=== PATIENT | female | born 1970 | race Caucasian/White ===

== ENCOUNTER 2019-12-07 15:17 | Outpatient (CLI) | payer BC, SELFPAY ==
--- NOTE | 2019-12-07 15:20 | MM_ITS ---
WS: [id number] SCREENING DIGITAL MAMMOGRAM WITH CAD HISTORY: SCREENING COMPARISON: 07/27/2015 Bilateral CC and MLO views submitted. Computer aided detection analyzed. Breast composition: There are scattered areas of fibroglandular density. No suspicious masses, microc alcifications or architectural distortion. MM/[place] [id number] IMPRESSION: BI-RADS: 1-Negative FOLLOW UP: 1 Year Follow-up
== END 2019-12-07 15:18 | disposition home or self-care (01) ==
LOC: RADSHAW 15:17
PROVIDERS: Family Provider Family Medicine; PCP Family Medicine; Visit Provider Family Medicine
DX: Z12.31 Encounter for screening mammogram for malignant neoplasm of breast (principal)
CPT/HCPCS: 77067

== ENCOUNTER 2020-03-14 09:16 | Outpatient (CLI) | payer BC, SELFPAY ==
[2020-03-14 10:36] LABS: Basophils # 0.1 10^3/uL (0.0-0.1); Basophils % 0.8 %; Eosinophils # 0.1 10^3/uL (0.0-0.8); Eosinophils % 1.5 %; Hematocrit 41.5 % (37.0-47.0); Hemoglobin 13.2 g/dL (11.5-15.3); Lymphocytes # 1.5 10^3/uL (0.8-4.8); Lymphocytes % 20.8 %; Mean Corpuscular HGB Conc 31.8 g/dL (30.0-36.0); Mean Corpuscular Hemoglobin 28.9 pg (28.0-34.0); Mean Corpuscular Volume 90.8 fL (81-99); Mean Platelet Volume 9.8 fL (7.4-10.4); Monocytes # 0.7 10^3/uL (0.2-0.9); Monocytes % 9.2 %; Neutrophils # 4.8 10^3/uL (1.8-7.7); Neutrophils % 67.4 %; Nucleated Red Blood Cells % 0 %; Platelet Count 345 10^3/cmm (130-400); Red Blood Count 4.57 10^6/uL (4.1-5.3); Red Cell Distribution Width 12.7 % (12.1-15.1); White Blood Count 7.2 10^3/uL (4.0-10.0)
== END 2020-03-14 09:17 | disposition home or self-care (01) ==
LOC: LAB 09:23
PROVIDERS: Family Provider Family Medicine; PCP Family Medicine; Visit Provider Specialist
DX: G35 Multiple sclerosis (principal); Z87.891 Personal history of nicotine dependence
CPT/HCPCS: 36415; 85025; 99213

== ENCOUNTER 2020-04-04 15:07 | Emergency (ER) | payer BC, SELFPAY ==
[2020-04-04 15:33] VITALS: BP 133/91; PULSE 84; RESP 14; TEMP 36.6; O2SAT 95; BMI 26.6
--- NOTE | 2020-04-04 16:13 | W.ED.GENADLT ---
HPI - General Adult General: Chief complaint: General Medical Stated complaint: rash Time Seen by Provider: 04/04/20 15:42 History of Present Illness: HPI narrative: Patient is a 49-year-old female presents today with pain, redness, swelling in her left arm. She says she has had some tenderness there since the beginning of March and around that time also had a blood draw in that arm. In the last few days it turned red and tender. She denies any fever constitutional symptoms. 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 The redness and swelling in her arm does not seem to involve the areas of eczema. Onset (ago): day(s) (Soreness for a few weeks but redness just for a day or 2.) Location: upper extremity Severity: moderate Quality: dull Pain Consistency: constant Review of Systems Const: Denies: fever(s) or chills Skin/Breast: Reports: erythema, skin tenderness, skin swelling and other (Significant eczema on both hands and her feet) PFSH ED PFSH: Family History Other Cancer Social History Smoking and tobacco status: former smoker Quit status (tobacco): has quit using tobacco Year quit tobacco: 2013 Physical Exam Const: COMMON NORMALS: no acute distress, patient oriented x3, no limitations and alert GENERAL APPEARANCE: cooperative and comfortable HENMT: HEAD & SCALP: normal to inspection FACE & SINUS: normal facial exam Eye: GENERAL EYE: appearance normal, both eyes and all related structures Neck/C-Spine: COMMON NORMALS: supple and no meningeal signs Chest: COMMONS NORMALS: normal inspection of the chest Resp: COMMON NORMALS: normal respiratory effort and No use of accessory muscles Cardio: PERIPHERAL PULSES: radial pulses present GI: COMMON NORMALS: Normal to inspection, nondistended, normoactive bowel sounds present, Soft to palpation and non-tender INSPECTION: Yes normal to inspection AUSCULTATION: Yes normoactive bowel sounds PALPATION: Yes Soft to palpation Back/Pelvis: COMMON NORMALS: thoracic and lumbar spine normal to inspection Extremity: COMMON NORMALS: normal to inspection Neuro: COMMON NORMALS: patient oriented x3, moves all extremities, no focal motor deficits and no sensory deficits noted SENSORIUM/ORIENTATION: Yes alert MENINGEAL SIGNS: Yes no meningeal signs Psych: COMMON NORMALS: mental status grossly normal, cooperative and normal affect Skin: COMMON NORMALS: turgor normal GENERAL SKIN EXAM: turgor normal OTHER: Dyshidrotic eczema on both palms. Left upper extremity has redness extending from the antecubital fossa down toward the hand and up toward the shoulder which is warm, tender and slightly firm. Course ED course: Plan for oral antibiotics. The patient asked about IV antibiotics as apparently she been sent over here with that recommendation. We discussed that we typically do a trial of oral antibiotics as that usually works. If that is not treating the infection then we will switch IV antibiotics. She said she has trouble swallowing and requested liquid. Vital Signs: Vital signs: Vital Signs Temperature 97.8 F 04/04/20 15:33 Pulse Rate 84 04/04/20 15:33 Respiratory Rate 14 04/04/20 15:33 Blood Pressure 133/91 04/04/20 15:33 Pulse Oximetry 95 04/04/20 15:33 Discharge Plan Discharge Patient Disposition: Home, Self-Care Clinical Impression: Phlebitis of left upper extremity Condition: Stable Prescriptions: New cephalexin 250 mg/5 mL suspension for reconstitution 500 mg PO TID 7 Days Qty: 210 RF: 0 betamethasone dipropionate 0.05 % cream 1 applic TOPICAL BID PRN (Reason: eczema) Qty: 45 RF: 0 No Action Tecfidera 240 mg capsule,delayed release(DR/EC) 240 mg PO BID RF: 0 ibuprofen 200 mg capsule 400 mg PO Q6H PRN (Reason: Pain) RF: 0 escitalopram oxalate [Lexapro] 20 mg tablet 20 mg PO DAILY RF: 0 cetirizine [Zyrtec] 10 mg tablet 10 mg PO DAILY PRN (Reason: Allergy Symptoms) RF: 0 Vitamin D3 2 tab PO DAILY RF: 0 Discharge Orders: Discharge Order (Routine); Ordered 04/04/20 Ordered By: Shell Trinidad Referrals: Fior Clark MD [Primary Care Provider] - Discharge Diet: Usual diet Discharge Activity: Resume usual activity Patient Instructions: Superficial Thrombophlebitis (ED) Activity Restrictions/Additional Instructions: Take one aspirin (325 mg) daily until the redness and tenderness is gone from the arm. Take the antiobiotcs as prescribed. Apply warm compresses several times daily. Return to the ED or see your doctor if redness continues to spread after 36 hours on the antibiotics, if not improving within 48 - 72 hours, if worse fever, swelling of the arm, or any other concerns. Coding Level of Care Code ED [facility] Receptionist for [facility]
[2020-04-04 16:23] VITALS: BP 121/81; PULSE 78; RESP 18; O2SAT 97
== END 2020-04-04 16:23 | disposition home or self-care (01) ==
PROVIDERS: Emergency Provider Emergency Medicine; Family Provider Family Medicine; PCP Family Medicine
DX: I80.8 Phlebitis and thrombophlebitis of other sites (principal); Z87.891 Personal history of nicotine dependence
CPT/HCPCS: 12345; 99281; 99283

== ENCOUNTER 2020-08-18 10:48 | Outpatient (CLI) | payer BC, SELFPAY ==
--- NOTE | 2020-08-18 11:00 | MR_ITS ---
WS: [id number] MRI HEAD WITH CONTRAST TECHNIQUE: Sagittal T1, T2 axial, T2 axial FLAIR, axial susceptibility weighted imaging, axial diffus ion weighted images, and coronal T2 images were obtained. Pre and post-T1 axial and post T1 coronal i mages. ADC and FSPGR images. CLINICAL INFORMATION: multiple sclerosis COMPARISON: Comparison MRI September 11, 2017, 9 16,016, 8 12,015. FINDINGS: No evidence of restricted diffusion to suggest acute ischemia. Ventricular system and basal cisterns are patent. Mild patchy supratentorial white matter lesions more prominent in the right frontal parie shahrzad periventricular white matter and left frontal parietal junction near the vertex. Chronic appearin g white matter lesion with encephalomalacia and gliosis left parietal occipital junction. No abnormal gadolinium enhancement. No evidence of enhancing demyelinating disease. White matter lesions are sta ble since the prior examination. No new lesions. No evidence of progressed disease. Corpus callosum is normal in appearance. No significant callosal atrophy. Mild parenchymal volume los s. Mild T1 hypointense lesion load. Normal optic chiasm and pituitary infundibulum. Normal cavernous sinuses and Meckel's cave. Temporal lobes and hippocampal formations are normal in appearance. No hemosiderin on susceptibly weighted prashant ges. No abnormal intracranial parenchymal enhancement. Normal dural venous sinuses. MR/MR head wo/w con [id number] IMPRESSION: 1. No significant changes since September 11, 2017. 2. Stable supratentorial white matter lesions compatible with history of demye linating disease. No new lesions. 3. No abnormal gadolinium enhancement to indicate active disease. 4. Mild parenchymal volume loss. No significant corpus callosal atrophy. Mild T1 hypointense lesion load. 5. No restricted diffusion to suggest acute ischemia. 6. No hemosiderin on the susceptibly weighted images.
== END 2020-08-18 10:49 | disposition home or self-care (01) ==
PROVIDERS: PCP Family Medicine; Visit Provider Specialist
DX: G35 Multiple sclerosis (principal)
CPT/HCPCS: 70553; A9579

== ENCOUNTER → 2021-01-04 15:40 | Outpatient (BNVA) | payer BC, SELFPAY | PROVIDERS: PCP Family Medicine; Visit Provider Specialist | DX: G35 Multiple sclerosis (principal); Z87.891 Personal history of nicotine dependence | CPT/HCPCS: 99213; 99214 ==

== ENCOUNTER 2021-01-09 13:00 | Outpatient (CLI) | payer BC, SELFPAY ==
[2021-01-09 13:35] LABS: Basophils # 0.1 10^3/uL (0.0-0.1); Basophils % 1.2 %; Eosinophils # 0.2 10^3/uL (0.0-0.8); Hematocrit 40.1 % (37.0-47.0); Hemoglobin 13.3 g/dL (11.5-15.3); Lymphocytes # 1.1 10^3/uL (0.8-4.8); Lymphocytes % 22.3 %; Mean Corpuscular HGB Conc 33.2 g/dL (30.0-36.0); Mean Corpuscular Hemoglobin 30.2 pg (28.0-34.0); Mean Corpuscular Volume 91.1 fL (81-99); Monocytes # 0.7 10^3/uL (0.2-0.9); Monocytes % 13.6 %; Neutrophils % 57.9 %; Nucleated Red Blood Cells % 0 %; Platelet Count 257 10^3/cmm (130-400); Red Cell Distribution Width 12.5 % (12.1-15.1); White Blood Count 4.8 10^3/uL (4.0-10.0)
[2021-01-09 14:08] LABS: Alanine Aminotransferase 11 U/L (0-33); Albumin Level 4.1 g/dL (3.5-5.2); Alkaline Phosphatase 70 IU/L (35-105); Anion Gap 11.6 (5-19); Aspartate Amino Transferase 14 U/L (0-32); Blood Urea Nitrogen 6 mg/dL (6-20); Calcium 8.9 mg/dL (8.5-10.5); Carbon Dioxide 26 mmol/L (22-29); Chloride 103 mmol/L (98-107); Globulin 3.1 g/dL (1.3-4.6); Glomerular Filtration Rate 131.7 mL/min (90-130); Glucose 82 mg/dL (65-115); Osmolality Calculated 281 mOsm/kg (285-295); Potassium 3.6 mmol/L (3.5-5.1); Sodium 137 mmol/L (136-145); Thyroid Stimulating Hormone 2.08 uIU/mL (0.27-4.20); Total Bilirubin 0.3 mg/dL (0.15-1.2); Total Protein 7.2 g/dL (6.6-8.7)
== END 2021-01-09 13:01 | disposition home or self-care (01) ==
LOC: LAB 13:04
PROVIDERS: PCP Family Medicine; Visit Provider Specialist
DX: G35 Multiple sclerosis (principal)
CPT/HCPCS: 36415; 80053; 84443; 85025

== ENCOUNTER 2021-01-11 08:06 | Outpatient (CLI) | payer BC, SELFPAY ==
--- NOTE | 2021-01-11 08:22 | MM_ITS ---
WS: [id number] BILATERAL DIGITAL SCREENING MAMMOGRAPHY WITH CAD CLINICAL INFORMATION: SCREENING HISTORY: Screening mammogram. No current complaints. COMPARISON: December 07, 2019 TECHNIQUE: Bilateral CC and MLO views. FINDINGS: The breasts are composed of heterogeneous fibroglandular density tissue, which can limit the detectio n of small underlying mass lesions. No suspicious mass, asymmetry, calcifications, or architectural d istortion. No evidence of malignancy. MM/[place] [id number] IMPRESSION: BI-RADS: 1-Negative FOLLOW UP: 1 Year Follow-up Recommend return to annual screening mammography.
== END 2021-01-11 08:07 | disposition home or self-care (01) ==
LOC: RADSHAW 08:08
PROVIDERS: PCP Family Medicine; Visit Provider Family Medicine
DX: Z12.31 Encounter for screening mammogram for malignant neoplasm of breast (principal)
CPT/HCPCS: 77067

== ENCOUNTER 2021-08-16 16:57 | Outpatient (CLI) | payer BC, SELFPAY ==
[2021-08-16 17:25] LABS: Basophils # 0.1 10^3/uL (0.0-0.1); Basophils % 0.9 %; Eosinophils # 0.1 10^3/uL (0.0-0.8); Eosinophils % 1.5 %; Hematocrit 39.6 % (37.0-47.0); Lymphocytes # 1.4 10^3/uL (0.8-4.8); Lymphocytes % 17.5 %; Mean Corpuscular HGB Conc 32.8 g/dL (30.0-36.0); Mean Corpuscular Hemoglobin 30.5 pg (28.0-34.0); Mean Platelet Volume 10.2 fL (7.4-10.4); Monocytes # 0.7 10^3/uL (0.2-0.9); Monocytes % 8.4 %; Neutrophils # 5.76 10^3/uL (1.8-7.7); Neutrophils % 71.5 %; Nucleated Red Blood Cells % 0 %; Platelet Count 287 10^3/cmm (130-400); Red Blood Count 4.26 10^6/uL (4.1-5.3); Red Cell Distribution Width 12.4 % (12.1-15.1); White Blood Count 8.1 10^3/uL (4.0-10.0)
[2021-08-16 18:28] LABS: Alanine Aminotransferase 11 U/L (0-33); Albumin Level 4.3 g/dL (3.5-5.2); Alkaline Phosphatase 63 IU/L (35-105); Anion Gap 12.5 (5-19); Aspartate Amino Transferase 13 U/L (0-32); Blood Urea Nitrogen 7 mg/dL (6-20); Calcium 8.9 mg/dL (8.5-10.5); Carbon Dioxide 26 mmol/L (22-29); Chloride 103 mmol/L (98-107); Globulin 2.9 g/dL (1.3-4.6); Glomerular Filtration Rate 169.7 mL/min (90-130); Glucose 87 mg/dL (65-115); Osmolality Calculated 283 mOsm/kg (285-295); Potassium 3.5 mmol/L (3.5-5.1); Sodium 138 mmol/L (136-145); Thyroid Stimulating Hormone 2.02 uIU/mL (0.27-4.20); Total Bilirubin 0.3 mg/dL (0.15-1.2); Total Protein 7.2 g/dL (6.6-8.7)
== END 2021-08-16 16:58 | disposition home or self-care (01) ==
LOC: LAB 17:09
PROVIDERS: PCP Family Medicine; Visit Provider Specialist
DX: R20.0 Anesthesia of skin (principal); R20.2 Paresthesia of skin
CPT/HCPCS: 36415; 80053; 84443; 85025

== ENCOUNTER 2022-01-02 13:47 | Outpatient (CLI) | payer BC, SELFPAY ==
[2022-01-02 14:15] LABS: Basophils # 0.1 10^3/uL (0.0-0.1); Basophils % 0.8 %; Eosinophils # 0.1 10^3/uL (0.0-0.8); Eosinophils % 2.4 %; Hemoglobin 13.5 g/dL (11.5-15.3); Lymphocytes # 1.3 10^3/uL (0.8-4.8); Lymphocytes % 22.4 %; Mean Corpuscular HGB Conc 32.9 g/dL (30.0-36.0); Mean Corpuscular Hemoglobin 30.4 pg (28.0-34.0); Mean Corpuscular Volume 92.3 fl (81-99); Mean Platelet Volume 9.6 fL (7.4-10.4); Monocytes # 0.7 10^3/uL (0.2-0.9); Monocytes % 11.9 %; Neutrophils # 3.67 10^3/uL (1.8-7.7); Neutrophils % 62.2 %; Nucleated Red Blood Cells % 0 %; Platelet Count 270 10^3/cmm (130-400); Red Blood Count 4.44 10^6/uL (4.1-5.3); Red Cell Distribution Width 12.6 % (12.1-15.1); White Blood Count 5.9 10^3/uL (4.0-10.0)
[2022-01-02 15:01] LABS: Alanine Aminotransferase 9 U/L (0-33); Albumin Level 4.5 g/dL (3.5-5.2); Alkaline Phosphatase 66 IU/L (35-105); Anion Gap 13.7 (5-19); Aspartate Amino Transferase 10 U/L (0-32); Blood Urea Nitrogen 7 mg/dL (6-20); Calcium 9.4 mg/dL (8.5-10.5); Carbon Dioxide 23 mmol/L (22-29); Chloride 106 mmol/L (98-107); Globulin 3.1 g/dL (1.3-4.6); Glomerular Filtration Rate 169.7 mL/min (90-130); Glucose 95 mg/dL (65-115); Osmolality Calculated 286 mOsm/kg (285-295); Potassium 3.7 mmol/L (3.5-5.1); Sodium 139 mmol/L (136-145); Thyroid Stimulating Hormone 1.13 uIU/mL (0.27-4.20); Total Bilirubin 0.3 mg/dL (0.15-1.2); Total Protein 7.6 g/dL (6.6-8.7)
== END 2022-01-02 13:48 | disposition home or self-care (01) ==
LOC: LAB 13:57
PROVIDERS: PCP Family Medicine; Visit Provider Specialist
DX: G35 Multiple sclerosis (principal)
CPT/HCPCS: 36415; 80053; 84443; 85025

== ENCOUNTER → 2022-03-01 14:56 | Outpatient (BNVA) | payer BC, SELFPAY | PROVIDERS: PCP Family Medicine; Visit Provider Internal Medicine Critical Care Medicine | DX: G35 Multiple sclerosis (principal); R06.02 Shortness of breath; J44.9 Chronic obstructive pulmonary disease, unspecified; Z87.891 Personal history of nicotine dependence | CPT/HCPCS: 71046 ==

== ENCOUNTER 2022-05-15 08:38 | Outpatient (CLI) | payer BC, SELFPAY ==
--- NOTE | 2022-05-15 13:34 | PFTS_ITS ---
Date of Study:05/15/22 Date of Dictation: MECHANICS: Forced vital capacity (FVC) is reduced. Forced expiratory volume in one second (FEV1) is reduced. FEV1/FVC is reduced. FLOW VOLUME LOOP: Reduced vital lung volumes with significant scooping. LUNG VOLUMES: Total lung capacity (TLC) is normal. Residual volume (RV) is increased. DIFFUSING CAPACITY FOR CARBON MONOXIDE: Mildly reduced. INTERPRETATION: The postbronchodilator spirometry is consistent with moderate airflow obstruction. There is no significant postbronchodilator response. Lung volumes are consistent with air trapping. Gas exchange (DLCO) is mildly reduced. MTDD
== END 2022-05-15 08:39 | disposition home or self-care (01) ==
LOC: RT 08:42
PROVIDERS: PCP Family Medicine; Visit Provider Internal Medicine Critical Care Medicine
DX: G35 Multiple sclerosis (principal)
CPT/HCPCS: 94060; 94726; 94729; J7614

== ENCOUNTER 2022-08-24 16:31 | Outpatient (CLI) | payer BC, SELFPAY ==
--- NOTE | 2022-08-24 16:41 | CT_ITS ---
WS: [id number] LDCT LUNG CANCER SCREENING HISTORY: Smoking history TECHNIQUE: Axial imaging performed from the apices to 1 cm below the costophrenic angles. Coronal and sagittal reformats are submitted with axial MIP series. All CT scans at [facility] use at least one of these dose optimization techniques: automated exposure control; mA and/or kV adjustment per patient size (includes targeted exams where dose is matched to clinical indication); or iterativ e reconstruction. DLP: 75.91 mGy.cm DIvol: Mean CTDIvol: 1.60 (mGy) COMPARISON: None available. Diagnostic quality: Satisfactory Lung Nodules: Marked hyperexpansion. Extensive paraseptal emphysematous changes. Thin wall cyst and p araseptal distribution throughout the lungs. Irregular shaped 15 mm nodule in the anterior mid RIGHT lung which is probably located in the upper lobe may extend into the middle lobe. May be an area of s carring as there is adjacent tethering, neoplasm not excluded. There is also an 8 mm nodule along the fissure which is typically benign. Bronchial wall thickening and areas of atelectasis at the lung ba ses. Heart: Normal size heart. Fluid collection conforming to this space abuts the posterior medial medias tinum measuring 3.4 x 6.5 cm. Hounsfield units are low. Favor this is probably a pericardial cyst. Other findings: No adenopathy. CT/CT lung screening [id number] IMPRESSION: LUNG-RADS: 4B-Suspicious FOLLOW UP: PET/CT recommended OTHER FINDINGS (S MODIFIER): None.
== END 2022-08-24 16:32 | disposition home or self-care (01) ==
PROVIDERS: PCP Family Medicine; Visit Provider Internal Medicine Critical Care Medicine
DX: Z12.2 Encounter for screening for malignant neoplasm of respiratory organs (principal); Z87.891 Personal history of nicotine dependence
CPT/HCPCS: 71271

== ENCOUNTER 2022-08-31 07:26 | Outpatient (CLI) | payer BC, SELFPAY ==
--- NOTE | 2022-08-31 07:42 | MM_ITS ---
WS: [id number] SCREENING DIGITAL BREAST TOMOSYNTHESIS MAMMOGRAM WITH CAD HISTORY: SCREEN COMPARISON: 12/07/2019 and 07/27/2015 and 01/11/2021 Bilateral CC and MLO with tomosynthesis and synthetic mammography submitted. Computer aided detection analyzed. Breast composition: There are scattered areas of fibroglandular density. Mild distortion and increase d density in the upper outer quadrant of the RIGHT breast near 10:00. Otherwise the breasts are negat chucky. MM/[place] [id number] IMPRESSION: BI-RADS: 0-Incomplete: Need additional imaging evaluation FOLLOW UP: Need Additional Imaging RIGHT breast: Spot compression views (CC and MLO). True ML. Ultrasound to follo w if abnormality persists.
== END 2022-08-31 07:27 | disposition home or self-care (01) ==
LOC: RAD 07:26
PROVIDERS: PCP Family Medicine; Visit Provider Family Medicine
DX: Z12.31 Encounter for screening mammogram for malignant neoplasm of breast (principal)
CPT/HCPCS: 77063; 77067

== ENCOUNTER 2022-10-03 08:35 | Outpatient (CLI) | payer BC, SELFPAY ==
--- NOTE | 2022-10-03 08:42 | MM_ITS ---
WS: [id number] ADDITIONAL VIEWS RIGHT MAMMOGRAM WITH DIGITAL BREAST TOMOSYNTHESIS. HISTORY: ABNORMAL MAMMO COMPARISON: 08/31/2022, 01/11/2021 and 12/07/2019 Spot compression views RIGHT breast in CC, MLO projections and true ML submitted with digital breast tomosynthesis and SM. The asymmetry resolves with additional imaging and spot compression views. This was fibroglandular anthony perimposed soft tissue. No residual abnormality. MM/[place] [id number] IMPRESSION: BI-RADS: 2-Benign FOLLOW UP: 1 Year Follow-up Return to annual screening mammography.
== END 2022-10-03 08:36 | disposition home or self-care (01) ==
PROVIDERS: PCP Family Medicine; Visit Provider Family Medicine
DX: R92.8 Other abnormal and inconclusive findings on diagnostic imaging of breast (principal)
CPT/HCPCS: 77061; G0279

== ENCOUNTER → 2022-11-15 16:11 | Outpatient (BNVA) | payer BC, SELFPAY | PROVIDERS: PCP Family Medicine; Visit Provider Internal Medicine Pulmonary Disease | DX: R06.02 Shortness of breath (principal); J44.9 Chronic obstructive pulmonary disease, unspecified; G35 Multiple sclerosis; R91.8 Other nonspecific abnormal finding of lung field | CPT/HCPCS: 36415; 82785; 85025; 86003 ==

== ENCOUNTER 2023-08-30 09:29 | Outpatient (CLI) | payer BC, SELFPAY ==
--- NOTE | 2023-08-30 10:00 | CT_ITS ---
WS: [id number] LDCT LUNG CANCER SCREENING TECHNIQUE: Noncontrast CT of the chest with coronal and sagittal reformatted images. CLINICAL INFORMATION: Cancer Screen COMPARISON: 08/24/2022 and PET/CT 09/08/2022 DLP: 76.67 mGy.cm DIvol: Mean CTDIvol: 1.40 (mGy) All CT scans at [facility] use at least one of these dose optimization techniques: automat ed exposure control; mA and/or kV adjustment per patient size (includes targeted exams where dose is matched to clinical indication); or iterative reconstruction. FINDINGS: Advanced paraseptal emphysematous change. Hyperinflation. Previously described pericardial cyst is un changed. Stable bulla and bleb formation. Bronchiectasis and subsegmental atelectasis RIGHT lower lob e. Irregular 1.5 cm nodule in the RIGHT upper lobe was FDG negative on the PET/CT and is unchanged. Stab le 7 mm nodule along the fissure. No mediastinal or hilar lymphadenopathy. Normal caliber thoracic aorta. Adrenal glands are normal. No axillary lymphadenopathy. IMPRESSION: CT/CT lung screening [id number] LUNG-RADS: 2-Benign Appearance or Behavior FOLLOW UP: 12 Month: Continue annual screening with LDCT
--- NOTE | 2023-08-30 11:00 | CT_ITS ---
WS: [id number] CT HEAD TECHNIQUE: Noncontrast CT of the head obtained from the skullbase to the vertex. CLINICAL INFORMATION: G35 - Multiple sclerosis COMPARISON: 2015 and MRI 08/18/2020 DLP: 1277.[address] scans at [facility] use at least one of these dose optimization techniques: automated e xposure control; mA and/or kV adjustment per patient size (includes targeted exams where dose is matc hed to clinical indication); or iterative reconstruction. FINDINGS: No evidence of intracranial hemorrhage or mass effect. Ventricular system and basal cisterns are farmer nt. Prominent subarachnoid spaces overlying the frontal lobes unchanged in appearance. Mild parenchym al volume loss. Chronic encephalomalacia in the LEFT posterior frontal and parietal lobes due to to c hronic demyelinating plaques. This is unchanged since the prior MRI. No definite evidence of signific ant disease progression although MRI would be more sensitive and specific. RIGHT periventricular lesi on appears unchanged Mastoid air cells are well aerated. Partially visualized paranasal nasal sinuses are well aerated. IMPRESSION: 1. No evidence of intracranial hemorrhage or mass effect. 2. LEFT posterior frontal and parietal encephalomalacia compatible with chronic demyelinating plaque s seen on the prior MRI. MRI would be more sensitive in further evaluation. 3. Mild parenchymal volume loss more prominent in the frontal lobes with prominent subarachnoid spac es appears unchanged. 4. No other suspicious findings.
--- NOTE | 2023-08-30 12:00 | CT_ITS ---
WS: [id number] CT CERVICAL SPINE TECHNIQUE: Noncontrast CT of the cervical spine with coronal and sagittal reformatted images. CLINICAL INFORMATION: G35 - Multiple sclerosis COMPARISON: None. DLP: 1277.[address] scans at [facility] use at least one of these dose optimization techniques: automated e xposure control; mA and/or kV adjustment per patient size (includes targeted exams where dose is matc hed to clinical indication); or iterative reconstruction. FINDINGS: Reversal of the normal cervical doses. Mild spondylitic changes. Disc space narrowing worse at C5-6. Slight anterolisthesis C3 on C4 and C4 on C5. C2-C3: Mild facet arthropathy. Spinal canal and foramen are patent. C3-C4: Mild disc osteophyte complex. Moderate facet arthropathy. Moderate RIGHT and mild LEFT bony fo raminal narrowing. C4-C5: Tiny shallow central protrusion. Mild facet arthropathy. Spinal canal and foramen are patent. C5-C6: Mild disc osteophyte complex with endplate ridging. Mild central canal stenosis. Moderate LEFT and mild RIGHT bony foraminal narrowing. Mild facet arthropathy. C6-C7: No significant disc bulging. Spinal canal and foramen are patent. C7-T1: Moderate LEFT and no significant RIGHT foraminal narrowing. Spinal canal is patent. IMPRESSION: 1. Reversal of the normal cervical doses. Mild spondylitic changes. Disc space narrowing worse at C5-6. Slight anterolisthesis C3 on C4 and C4 on C5. 2. Mild central canal stenosis C5-6 due to disc osteophyte complex. 3. Moderate bony foraminal narrowing RIGHT C3-4, LEFT C5-6, and LEFT C7-T1
== END 2023-08-30 09:30 | disposition home or self-care (01) ==
PROVIDERS: PCP Family Medicine; Visit Provider Internal Medicine Pulmonary Disease
DX: G35 Multiple sclerosis (principal); Z12.2 Encounter for screening for malignant neoplasm of respiratory organs; M48.02 Spinal stenosis, cervical region; G93.89 Other specified disorders of brain; Z87.891 Personal history of nicotine dependence
CPT/HCPCS: 70450; 71271; 72125

== ENCOUNTER 2024-01-23 15:14 | Outpatient (CLI) | payer BC, SELFPAY ==
[2024-01-23 16:27] LABS: Basophils % 0.3 %; Eosinophils # 0.1 10^3/uL (0.0-0.8); Eosinophils % 1.3 %; Hematocrit 40.2 % (36-47); Lymphocytes # 1.8 10^3/uL (0.8-4.8); Lymphocytes % 28.6 %; Mean Corpuscular HGB Conc 33.6 g/dL (30-55); Mean Corpuscular Hemoglobin 29.9 pg (27-33); Mean Corpuscular Volume 88.9 fl (85-98); Mean Platelet Volume 10.6 fL (7.4-10.4); Monocytes # 0.5 10^3/uL (0.2-0.9); Monocytes % 7.8 %; Neutrophils # 3.75 10^3/uL (1.8-7.7); Neutrophils % 61.3 %; Nucleated Red Blood Cells % 0 %; Platelet Count 278 10^3/cmm (157-399); Red Blood Count 4.52 10^6/uL (3.85-5.65); Red Cell Distribution Width 12.2 % (12.1-15.1); White Blood Count 6.12 10^3/uL (3.29-11.43)
[2024-01-23 17:00] LABS: Alanine Aminotransferase 15 U/L (0-33); Albumin Level 4.3 g/dL (3.5-5.2); Alkaline Phosphatase 76 U/L (35-105); Aspartate Amino Transferase 18 U/L (0-32); Blood Urea Nitrogen 6 mg/dL (6-20); Calcium 8.9 mg/dL (8.5-10.5); Carbon Dioxide 25 mmol/L (22-29); Chloride 104 mmol/L (98-107); Globulin 3.2 g/dL (1.3-4.6); Glomerular Filtration Rate 130.1 mL/min (90-130); Glucose 83 mg/dL (65-115); Osmolality Calculated 289 mOsm/kg (285-295); Sodium 141 mmol/L (136-145); Thyroid Stimulating Hormone 1.09 uIU/mL (0.27-4.20); Total Bilirubin 0.3 mg/dL (0.15-1.2); Total Protein 7.5 g/dL (6.6-8.7)
== END 2024-01-23 15:15 | disposition home or self-care (01) ==
LOC: LAB 15:16
PROVIDERS: PCP Family Medicine; Visit Provider Specialist
DX: G35 Multiple sclerosis (principal)
CPT/HCPCS: 36415; 80053; 84443; 85025

== ENCOUNTER 2024-11-06 15:00 | Outpatient (CLI) | payer BC, SELFPAY ==
--- NOTE | 2024-11-06 15:04 | MM_ITS ---
WS: [id number] BILATERAL 3D TOMOSYNTHESIS DIGITAL SCREENING MAMMOGRAPHY WITH CAD CLINICAL INFORMATION: SCREENING HISTORY: Screening mammogram. No current complaints. COMPARISON: 2021 TECHNIQUE: Bilateral CC and MLO views. FINDINGS: The breasts are composed of heterogeneous fibroglandular density tissue, which can limit the detectio n of small underlying mass lesions. No suspicious mass, asymmetry, calcifications, or architectural d istortion. No evidence of malignancy. Similar-appearing dense tissue anterior RIGHT breast MM/MM [facility] tomosynthesis [id number] IMPRESSION: DENSITY: The breasts are heterogeneously dense, which may obscure small masses. BI-RADS: 2 - Benign FOLLOW UP: 1 Year Follow-up Recommend return to annual screening mammography.
== END 2024-11-06 15:01 | disposition home or self-care (01) ==
LOC: RAD 15:01
PROVIDERS: PCP Family Medicine; Visit Provider Family Medicine
DX: Z12.31 Encounter for screening mammogram for malignant neoplasm of breast (principal); R92.333 Mammographic heterogeneous density, bilateral breasts
CPT/HCPCS: 77063; 77067

== ENCOUNTER 2024-11-16 07:38 | Outpatient (CLI) | payer BC, SELFPAY ==
--- NOTE | 2024-11-16 07:46 | CT_ITS ---
WS: [id number] LDCT LUNG CANCER SCREENING HISTORY: HX OF TOBACCO USE TECHNIQUE: Axial imaging performed from the apices to 1 cm below the costophrenic angles. Coronal and sagittal reformats are submitted with axial MIP series. All CT scans at [facility] use at least one of these dose optimization techniques: automated exposure control; mA and/or kV adjustment per patient size (includes targeted exams where dose is matched to clinical indication); or iterativ e reconstruction. DLP: 59.22 mGy.cm DIvol: Mean CTDIvol: 1.20 (mGy) COMPARISON: 08/30/2023 Diagnostic quality: Satisfactory Lungs: Hyperexpanded lungs with emphysema. Paraseptal emphysema. Anterior RIGHT upper lobe spiculated nodule is reidentified and negative on a prior PET/CT. No new or increasing size of any mass or nodu le. Mild bronchiectasis at the lung bases. Heart: Normal size heart with no pericardial effusion.. Other findings: Normal size aorta. Normal size pulmonary artery. No adenopathy. Fluid conforming to t he space posterior to the RIGHT heart and abutting the mediastinum. No increase in size. Suspect tima cardial cyst. No adrenal mass. CT/CT lung screening [id number] IMPRESSION: LUNG-RADS: 2-Benign Appearance or Behavior FOLLOW UP: 12 Month: Continue annual screening with LDCT OTHER FINDINGS (S MODIFIER): None.
== END 2024-11-16 07:39 | disposition home or self-care (01) ==
PROVIDERS: PCP Family Medicine; Visit Provider Family Medicine
DX: Z12.2 Encounter for screening for malignant neoplasm of respiratory organs (principal); R91.1 Solitary pulmonary nodule; J43.9 Emphysema, unspecified; J94.8 Other specified pleural conditions; Z87.891 Personal history of nicotine dependence
CPT/HCPCS: 71271

== ENCOUNTER 2025-01-19 16:00 | Outpatient (CLI) | payer BC, SELFPAY ==
[2025-01-19 16:32] LABS: Basophils # 0.1 10^3/uL (0.0-0.1); Basophils % 0.7 %; Eosinophils # 0.1 10^3/uL (0.0-0.8); Eosinophils % 1.7 %; Lymphocytes # 1.7 10^3/uL (0.8-4.8); Lymphocytes % 20.7 %; Mean Corpuscular HGB Conc 33.8 g/dL (30-55); Mean Corpuscular Hemoglobin 30.9 pg (27-33); Mean Corpuscular Volume 91.5 fl (85-98); Mean Platelet Volume 9.7 fL (7.4-10.4); Monocytes # 0.8 10^3/uL (0.2-0.9); Monocytes % 9.2 %; Neutrophils # 5.56 10^3/uL (1.8-7.7); Neutrophils % 67.3 %; Nucleated Red Blood Cells % 0 %; Platelet Count 326 10^3/cmm (157-399); Red Blood Count 4.37 10^6/uL (3.85-5.65); Red Cell Distribution Width 12.1 % (12.1-15.1); White Blood Count 8.26 10^3/uL (3.29-11.43)
[2025-01-19 17:44] LABS: Alanine Aminotransferase 10 U/L (0-33); Albumin Level 4.5 g/dL (3.5-5.2); Alkaline Phosphatase 76 U/L (35-105); Anion Gap 17.4 (5-19); Aspartate Amino Transferase 12 U/L (0-32); Blood Urea Nitrogen 9 mg/dL (6-20); Calcium 9.3 mg/dL (8.5-10.5); Carbon Dioxide 24 mmol/L (22-29); Chloride 102 mmol/L (98-107); Glomerular Filtration Rate 129.6 mL/min (90-130); Glucose 86 mg/dL (65-115); Osmolality Calculated 288 mOsm/kg (285-295); Potassium 3.4 mmol/L (3.5-5.1); Sodium 140 mmol/L (136-145); Thyroid Stimulating Hormone 1.77 uIU/mL (0.27-4.20); Total Bilirubin 0.3 mg/dL (0.15-1.2); Total Protein 7.5 g/dL (6.6-8.7)
== END 2025-01-19 16:01 | disposition home or self-care (01) ==
PROVIDERS: PCP Family Medicine; Visit Provider Specialist
DX: G35 Multiple sclerosis (principal); I80.8 Phlebitis and thrombophlebitis of other sites
CPT/HCPCS: 80053; 84443; 85025